=== PATIENT | male | born 1990 | race African-American/Black ===

== ENCOUNTER 2020-05-23 04:36 | Emergency (ER) | payer MEDICAID ==
[~2020-05-23] VITALS: Ht 162.6 cm; Wt 91.0 kg
[2020-05-23 06:31] LABS: CLARITY URINE CLEAR (CLEAR); COLOR URINE YELLOW (YELLOW); KETONES URINE 1+ (NEGATIVE); LEUKOCYTE ESTERASE URINE NEGATIVE (NEGATIVE); NITRITE URINE NEGATIVE (NEGATIVE); OCCULT BLOOD URINE NEGATIVE (NEGATIVE); PROTEIN URINE NEGATIVE (NEGATIVE); SPECIFIC GRAVITY URINE 1.018 (1.005-1.030)
[2020-05-23 06:33] LABS: BASOPHILS % 0.7 % (0.0-2.0); EOSINOPHILS % 2.6 % (0.0-5.0); HEMATOCRIT. 42.3 % (42.0-52.0); HEMOGLOBIN. 14.2 g/dL (14.0-18.0); LYMPHOCYTES % 29.7 % (20.0-50.0); MEAN CORPUSCULAR HEMOGLOBIN 33.1 pg (28.0-32.0); MEAN CORPUSCULAR VOLUME 98.4 fL (80.0-94.0); MEAN PLATELET VOLUME 8.3 fl (7.4-10.4); MONOCYTES % 4.5 % (2.0-8.0); NEUTROPHILS % 62.5 % (40.0-76.0); PLATELET 322 x1000/uL (130-400); RED CELL DISTRIBUTION WIDTH 12.4 % (11.6-14.6)
[2020-05-23 06:44] LABS: PROTHROMBIN TIME 10.3 sec (9.6-11.0)
[2020-05-23 06:46] LABS: CHLORIDE 106 mEq/L (98-107)
[2020-05-23] MEDS ORDERED: VISCOUS LIDOCAINE 2% 15 ML UDC PO STA (07:23)
[2020-05-23 07:25] VITALS: BP 115/85
[2020-05-23] MEDS ORDERED: ACETAMINOPHEN 500MG TABLET PO ONE (07:30)
[2020-05-23] MEDS ORDERED: MAGNESIUM/ALUMINUM HYDROXIDE/SIMETHICONE 30ML UDC PO ONE (07:30)
== END 2020-05-23 07:49 | disposition home or self-care (01) ==
LOC: ER 04:36
DX: R10.13 Epigastric pain (principal); F17.290 Nicotine dependence, other tobacco product, uncomplicated; F12.10 Cannabis abuse, uncomplicated
CPT/HCPCS: 36415; 80053; 81003; 85025; 93005; 99284

== ENCOUNTER 2021-10-16 14:28 | Emergency (ER) | payer MEDICAID ==
[~2021-10-16] VITALS: Ht 170.2 cm; Wt 80.0 kg
[2021-10-16] MEDS ORDERED: MAGNESIUM/ALUMINUM HYDROXIDE/SIMETHICONE 30ML UDC PO STA (14:52)
[2021-10-16] MEDS ORDERED: VISCOUS LIDOCAINE 2% 15 ML UDC PO STA (14:52)
[2021-10-16] MEDS ORDERED: DICYCLOMINE 10 MG/5 ML ORAL SYR PO STA (14:52)
[2021-10-16 15:59] LABS: BASOPHILS % 0.7 % (0.0-2.0); EOSINOPHILS % 0.9 % (0.0-5.0); HEMATOCRIT. 45.3 % (42.0-52.0); HEMOGLOBIN. 15.4 g/dL (14.0-18.0); LYMPHOCYTES % 19.3 % (20.0-50.0); MEAN CORPUSCULAR HEMOGLOBIN 32.8 pg (28.0-32.0); MEAN CORPUSCULAR VOLUME 96.6 fL (80.0-94.0); MONOCYTES % 6.4 % (2.0-8.0); NEUTROPHILS % 72.7 % (40.0-76.0); PLATELET 367 x1000/uL (130-400); RED BLOOD CELL COUNT 4.68 mill/uL (4.7-6.1); RED CELL DISTRIBUTION WIDTH 12.3 % (11.6-14.6)
[2021-10-16 16:06] LABS: CHLORIDE 89 mEq/L (98-107)
[2021-10-16 16:59] VITALS: BP 126/89
[2021-10-16] MEDS ORDERED: OMEP40CA20 MT (17:11)
== END 2021-10-16 18:12 | disposition home or self-care (01) ==
LOC: ER 14:28
DX: R10.13 Epigastric pain (principal); F12.10 Cannabis abuse, uncomplicated
CPT/HCPCS: 36415; 74018; 80053; 85025; 93005; 99291

== ENCOUNTER 2022-08-20 00:55 | Emergency (ER) | payer MEDICAID ==
[~2022-08-20] VITALS: Ht 162.6 cm; Wt 74.0 kg
[~2022-08-20 00:55] MED LIST: OMEP40CA20 MT
[2022-08-20 01:26] VITALS: BP 129/78
== END 2022-08-20 08:22 | disposition left against medical advice (07) ==
LOC: ER 01:04
DX: Z53.21 Procedure and treatment not carried out due to patient leaving prior to being seen by health care provider (principal)